=== PATIENT | female | born 1985 | race Caucasian/White ===

== ENCOUNTER 2018-06-09 11:13 | Inpatient (IN) | payer OTHER ==
[~2018-06-09] VITALS: Ht 180.3 cm; Wt 94.1 kg
[2018-06-18] MEDS ORDERED: OXYTOCIN 30U/ 0.9% NaCL 500ML 500 ML IV ONE (06:36)
[2018-06-18] MEDS ORDERED: ONDANSETRON 2MG/ML, 2ML IVPush PRN (07:00)
[2018-06-18] MEDS ORDERED: CALCIUM CARBONATE 500 MG TAB.CHEW PO PRN (07:00)
[2018-06-18] MEDS ORDERED: FENTANYL PF 100 MCG/2ML IV PRN (07:00)
[2018-06-18] MEDS ORDERED: FENTANYL PF 100 MCG/2ML IVPush PRN (07:00)
[2018-06-18] MEDS ORDERED: PLEASE ENTER HEIGHT AND WEIGHT MC SCH ×2 (07:00→09:00)
[2018-06-18 07:19] LABS: BASOPHILS # (AUTO) 0.02 x10^3/uL (0-0.1); BASOPHILS % (AUTO) 0 % (0-1); EOSINOPHILS % (AUTO) 1 % (1-7); LYMPHOCYTES % (AUTO) 20 % (22-44); MD NO; MEAN CORPUSCULAR HEMOGLOBIN 28.7 pg (27.0-34.8); MEAN CORPUSCULAR HGB CONC 33.4 g/dL (32.4-35.8); MEAN CORPUSCULAR VOLUME 85.9 fL (80-100); MEAN PLATELET VOLUME 8.7 fL (7.4-10.4); MONOCYTES # (AUTO) 0.52 x10^3/uL (0.2-0.8); MONOCYTES % (AUTO) 5 % (2-9); NEUTROPHILS # (AUTO) 7.56 x10^3/uL (1.8-6.8); NEUTROPHILS % (AUTO) 73 % (42-75); PLATELET COUNT 307 x10^3/uL (130-400); RED BLOOD COUNT 4.56 x10^6/uL (3.82-5.3); RED CELL DISTRIBUTION WIDTH 15.4 % (9.6-15.2)
[2018-06-18] MEDS: LACTATED RINGERS 1,000 ML IV SCH ×2 (07:45→17:03)
[2018-06-18] MEDS ORDERED: NEWBORN KIT ONE (07:57)
[2018-06-18] MEDS ORDERED: LIDOCAINE 1%, 20ML ONE ×2 (07:57→07:58)
[2018-06-18] MEDS ORDERED: MISOPROSTOL 25 MCG TABLET ONE ×2 (07:57→11:41)
[2018-06-18] MEDS ORDERED: MISOPROSTOL 200 MCG TABLET ONE (07:58)
[2018-06-18] MEDS ORDERED: OXYTOCIN 30U/ 0.9% NaCL 500ML 500 ML ONE (07:58)
[2018-06-18] MEDS: MISOPROSTOL 25 MCG TABLET VG PRN ×2 (08:00→12:00)
[2018-06-18 08:36] VITALS: BP 131/78
[2018-06-18] MEDS ORDERED: FENTANYL/BUPIV./NS/PF 250 ML EPIDCONT SCH ×2 (16:43→16:50)
[2018-06-18] MEDS ORDERED: LACTATED RINGERS 1,000 ML IV SCH (16:50)
[2018-06-18] MEDS ORDERED: NALOXONE 0.4 MG/ML, 1ML IVPush PRN (17:00)
[2018-06-18] MEDS ORDERED: LACTATED RINGERS 1,000 ML IVBOLUS PRN (17:00)
[2018-06-18] MEDS ORDERED: EPHEDRINE 50 MG/ML, 1ML IVPush PRN (17:00)
[2018-06-18] MEDS ORDERED: FENTANYL PF 500 MCG, BUPIVACAINE/PF 0.5%, 30ML 62.5 ML in SODIUM CHLORIDE 0.9% 177.5 ML EPIDCONT SCH (17:30)
[2018-06-18] MEDS ORDERED: BUPIVACAINE 0.25% ONE (17:39)
[2018-06-18] MEDS ORDERED: D5%-LACTATED RINGERS 1,000 ML IV SCH (22:41)
[2018-06-18] MEDS ORDERED: TERBUTALINE 1 MG/ML, 1ML IVPush PRN (23:00)
[2018-06-19] MEDS: OXYTOCIN 30U/ 0.9% NaCL 500ML 500 ML IV SCH ×2 (04:59→14:59)
[2018-06-19] MEDS ORDERED: MISOPROSTOL 200 MCG TABLET PR PRN (05:00)
[2018-06-19] MEDS ORDERED: METOCLOPRAMIDE 5 MG/ML, 2ML IV PRN (05:00)
[2018-06-19] MEDS ORDERED: BISACODYL 10 MG SUPP PR PRN (05:00)
[2018-06-19] MEDS ORDERED: METHYLERGONOVINE 0.2 MG/ML IM PRN (05:00)
[2018-06-19] MEDS ORDERED: OXYcodone IR 5MG TABLET PO PRN (05:00)
[2018-06-19] MEDS ORDERED: OXYcodone/APAP 5/325MG TABLET PO PRN (05:00)
[2018-06-19] MEDS ORDERED: CARBOPROST TROMETHAMINE 250 MCG/ML, 1ML IM PRN (05:00)
[2018-06-19] MEDS ORDERED: ACETAMINOPHEN 325 MG TABLET PO PRN (05:00)
[2018-06-19] MEDS ORDERED: ONDANSETRON 2MG/ML, 2ML IV PRN (05:00)
[2018-06-19] MEDS ORDERED: GLYCERIN ADULT SUPP PR PRN (05:00)
[2018-06-19] MEDS ORDERED: ACETAMINOPHEN 325 MG TABLET ONE (05:14)
[2018-06-19] MEDS ORDERED: OXYTOCIN 30U/ 0.9% NaCL 500ML 500 ML ONE (06:48)
[2018-06-19 07:45] VITALS: BP 103/71
[2018-06-19] MEDS: DOCUSATE 100 MG CAPSULE PO PRN (07:55)
[2018-06-19] MEDS: PRENATAL VIT/IRON/FA 1 EACH TABLET PO SCH (07:55)
[2018-06-19] MEDS: IBUPROFEN 600 MG TABLET PO PRN ×2 (09:45→17:30)
[2018-06-19 12:20] VITALS: BP 114/77
[2018-06-19 14:05] LABS: MEAN CORPUSCULAR HEMOGLOBIN 29.6 pg (27.0-34.8); MEAN CORPUSCULAR HGB CONC 34.3 g/dL (32.4-35.8); MEAN CORPUSCULAR VOLUME 86.3 fL (80-100); MEAN PLATELET VOLUME 8.7 fL (7.4-10.4); PLATELET COUNT 313 x10^3/uL (130-400); RED CELL DISTRIBUTION WIDTH 15.5 % (9.6-15.2)
[2018-06-19 14:33] LABS: MD YES
[2018-06-19 14:35] LABS: <PLATELET ESTIMATE> ADEQUATE; <PLT MORPHOLOGY> NORMAL PLT MORPH; <RBC MORPHOLOGY> NORMAL; BAND#(MANUAL) 2.85 x10^3/uL; BANDS%(MANUAL) 13 % (0-7); LYMPH#(MANUAL) 3.72 x10^3/uL (1-3.4); LYMPHS% (MANUAL) 17 % (22-44); MONOS#(MANUAL) 0.44 x10^3/uL (0.3-2.7); MONOS% (MANUAL) 2 % (2-9); SEG#(MANUAL) 14.89 x10^3/uL (1.8-6.8); SEGS% (MANUAL) 68 % (42-75)
[2018-06-19 16:00] VITALS: BP 105/68
[2018-06-19 20:30] VITALS: BP 109/72
[2018-06-20 00:14] VITALS: BP 100/64
[2018-06-20] MEDS: OXYTOCIN 30U/ 0.9% NaCL 500ML 500 ML IV SCH (00:59)
[2018-06-20 04:30] VITALS: BP 113/75
[2018-06-20 07:10] VITALS: BP 119/78
[2018-06-20] MEDS ORDERED: MEASLES,MUMPS&RUBELLA VACC/PF 0.5 ML SQ-VACC ONE (10:00)
[2018-06-20] MEDS ORDERED: OXYC-302 PO (10:01)
[2018-06-20] MEDS ORDERED: IBUP-1222 PO (10:01)
[2018-06-20] MEDS ORDERED: DOCU-131 PO (10:01)
[2018-06-20] MEDS: IBUPROFEN 600 MG TABLET PO PRN (10:39)
[2018-06-20] MEDS: PRENATAL VIT/IRON/FA 1 EACH TABLET PO SCH (10:39)
[2018-06-20] MEDS: DOCUSATE 100 MG CAPSULE PO PRN (10:39)
== END 2018-06-21 12:49 | disposition home or self-care (01) | DRG 807 ==
LOC: LDIP 06-18 06:31 → 2NW 06-19 07:54
PROVIDERS: ADMIT Obstetrics & Gynecology; ATTEND Obstetrics & Gynecology
PROC: 0HQ9XZZ Repair Perineum Skin, External Approach (ICD-10-PCS; principal; 2018-06-19)
PROC: 10E0XZZ Delivery of Products of Conception, External Approach (ICD-10-PCS; 2018-06-19)
PROC: 10907ZC Drainage of Amniotic Fluid, Therapeutic from Products of Conception, Via Natural or Artificial Opening (ICD-10-PCS; 2018-06-19)
PROC: 3E0R3BZ Introduction of Anesthetic Agent into Spinal Canal, Percutaneous Approach (ICD-10-PCS; 2018-06-19)
PROC: 00HU33Z Insertion of Infusion Device into Spinal Canal, Percutaneous Approach (ICD-10-PCS; 2018-06-19)
PROC: 3E0P7VZ Introduction of Hormone into Female Reproductive, Via Natural or Artificial Opening (ICD-10-PCS; 2018-06-19)
DX: O48.0 Post-term pregnancy (principal); Z37.0 Single live birth; O26.03 Excessive weight gain in pregnancy, third trimester; O69.81X0 Labor and delivery complicated by cord around neck, without compression, not applicable or unspecified; O70.0 First degree perineal laceration during delivery; O77.0 Labor and delivery complicated by meconium in amniotic fluid; Z3A.41 41 weeks gestation of pregnancy
CPT/HCPCS: 36415; 85025; 86850; 86900; G0378; J3010; J3490; J2590; J7050; J7120; J7121

== ENCOUNTER 2020-09-02 07:07 | Inpatient (IN) | payer OTHER ==
[~2020-09-02] VITALS: Ht 172.7 cm; Wt 101.0 kg
[~2020-09-02 07:07] MED LIST: DOCU-131 PO; IBUP-1222 PO; OXYC1TAB14 PO
[2020-09-02] MEDS ORDERED: MISOPROSTOL 25 MCG TABLET VG PRN (07:30)
[2020-09-02] MEDS ORDERED: TERBUTALINE 1 MG/ML, 1ML SQ PRN (07:30)
[2020-09-02] MEDS ORDERED: FENTANYL PF 100 MCG/2ML IV PRN (07:30)
[2020-09-02] MEDS ORDERED: CALCIUM CARBONATE 500 MG TAB.CHEW PO PRN (07:30)
[2020-09-02] MEDS: D5%-LACTATED RINGERS 1,000 ML IV SCH ×2 (07:30→15:30)
[2020-09-02] MEDS ORDERED: SODIUM CHLORIDE FLUSH 10ML SYR IVF PRN (07:30)
[2020-09-02] MEDS ORDERED: TERBUTALINE 1 MG/ML, 1ML IVPush PRN (07:30)
[2020-09-02] MEDS ORDERED: ONDANSETRON 2MG/ML, 2ML IVPush PRN ×2 (07:30→13:00)
[2020-09-02] MEDS ORDERED: OXYTOCIN 30U/ 0.9% NaCL 500ML 500 ML IV PRN (07:30)
[2020-09-02] MEDS ORDERED: FENTANYL PF 100 MCG/2ML IVPush PRN (07:30)
[2020-09-02] MEDS ORDERED: OXYTOCIN 30U/ 0.9% NaCL 500ML 500 ML IV ONE (07:30)
[2020-09-02] MEDS ORDERED: LIDOCAINE 1%, 20ML ONE (07:36)
[2020-09-02] MEDS ORDERED: NEWBORN KIT ONE (07:36)
[2020-09-02] MEDS ORDERED: MISOPROSTOL 200 MCG TABLET ONE (07:37)
[2020-09-02] MEDS: LACTATED RINGERS 1,000 ML IV SCH ×2 (07:50→15:30)
[2020-09-02 07:53] LABS: BASOPHILS % (AUTO) 0 % (0-1); EOSINOPHILS % (AUTO) 1 % (1-7); LYMPHOCYTES % (AUTO) 22 % (22-44); MEAN CORPUSCULAR HEMOGLOBIN 28.2 pg (27.0-34.8); MEAN PLATELET VOLUME 9.6 fL (7.4-10.4); MONOCYTES % (AUTO) 5 % (2-9); NEUTROPHILS % (AUTO) 72 % (42-75); PLATELET COUNT 266 x10^3/uL (130-400); RED BLOOD COUNT 4.59 x10^6/uL (3.82-5.3); RED CELL DISTRIBUTION WIDTH 14.6 % (9.6-15.2)
[2020-09-02 07:57] LABS: MD NO
[2020-09-02 08:00] VITALS: BP 117/82
[2020-09-02 08:05] LABS: ALANINE AMINOTRANSFERASE 16 U/L (12-78); ALBUMIN 2.6 g/dL (3.4-5.0); ANION GAP 9 mmol/L (5-15); CALCIUM 8.6 mg/dL (8.5-10.1); CHLORIDE 109 mmol/L (98-107); CREATININE 0.62 mg/dL (0.55-1.02)
[2020-09-02 08:06] LABS: BILIRUBIN, DIRECT < 0.1 mg/dL (0.1-0.2)
[2020-09-02 08:10] LABS: ALKALINE PHOSPHATASE 159 U/L (45-117); BILIRUBIN,TOTAL 0.3 mg/dL (0.2-1.0); TOTAL PROTEIN 6.3 g/dL (6.4-8.2)
[2020-09-02 08:36] LABS: MICROSCOPIC INDICATED
[2020-09-02] MEDS ORDERED: FENTANYL/BUPIV./NS/PF 250 ML EPIDCONT ONE (12:35)
[2020-09-02] MEDS ORDERED: BUPIVACAINE 0.25% ONE (12:35)
[2020-09-02] MEDS ORDERED: EPHEDRINE 50 MG/ML, 1ML IVPush PRN (13:00)
[2020-09-02] MEDS ORDERED: DIPHENHYDRAMINE 50 MG/ML, 1ML IVPush PRN (13:00)
[2020-09-02] MEDS ORDERED: NALOXONE 0.4 MG/ML, 1ML IVPush PRN (13:00)
[2020-09-02] MEDS ORDERED: LACTATED RINGERS 1,000 ML IV SCH (13:00)
[2020-09-02] MEDS ORDERED: LACTATED RINGERS 1,000 ML IVBOLUS PRN (13:00)
[2020-09-02] MEDS ORDERED: FENTANYL/BUPIV./NS/PF 250 ML EPIDCONT SCH (13:00)
[2020-09-02] MEDS ORDERED: ONDANSETRON 2MG/ML, 2ML IV PRN (16:00)
[2020-09-02] MEDS ORDERED: DOCUSATE 100 MG CAPSULE PO PRN (16:00)
[2020-09-02] MEDS: OXYTOCIN 30U/ 0.9% NaCL 500ML 500 ML IV SCH (16:00)
[2020-09-02] MEDS ORDERED: SIMETHICONE 80 MG CHEW TAB PO PRN (16:00)
[2020-09-02] MEDS ORDERED: MISOPROSTOL 200 MCG TABLET PR PRN (16:00)
[2020-09-02] MEDS ORDERED: HYDROcodone/APAP 5/325 TABLET PO PRN ×2 (16:00)
[2020-09-02] MEDS ORDERED: METHYLERGONOVINE 0.2 MG/ML IM PRN (16:00)
[2020-09-02] MEDS ORDERED: CARBOPROST TROMETHAMINE 250 MCG/ML, 1ML IM PRN (16:00)
[2020-09-02] MEDS ORDERED: ACETAMINOPHEN 325 MG TABLET PO PRN ×2 (16:00)
[2020-09-02 17:45] VITALS: BP 129/77
[2020-09-02] MEDS: IBUPROFEN 600 MG TABLET PO PRN (19:34)
[2020-09-02 21:00] VITALS: BP 117/77
[2020-09-02 23:49] LABS: BASOPHILS % (AUTO) 1 % (0-1); EOSINOPHILS % (AUTO) 0 % (1-7); LYMPHOCYTES % (AUTO) 15 % (22-44); MEAN CORPUSCULAR HEMOGLOBIN 28.4 pg (27.0-34.8); MEAN PLATELET VOLUME 9.8 fL (7.4-10.4); MONOCYTES % (AUTO) 5 % (2-9); NEUTROPHILS % (AUTO) 79 % (42-75); PLATELET COUNT 246 x10^3/uL (130-400); RED BLOOD COUNT 4.17 x10^6/uL (3.82-5.3); RED CELL DISTRIBUTION WIDTH 14.6 % (9.6-15.2)
[2020-09-02 23:59] LABS: MD NO
[2020-09-03 01:50] VITALS: BP 105/70
[2020-09-03] MEDS: IBUPROFEN 600 MG TABLET PO PRN ×2 (01:59→08:30)
[2020-09-03] MEDS: OXYTOCIN 30U/ 0.9% NaCL 500ML 500 ML IV SCH (02:00)
[2020-09-03 07:10] VITALS: BP 119/85
[2020-09-03] MEDS ORDERED: PRENATAL VIT/IRON/FA 1 EACH TABLET PO SCH (09:00)
[2020-09-03 11:50] VITALS: BP 112/71
== END 2020-09-03 16:40 | disposition home or self-care (01) | DRG 807 ==
LOC: LDIP 07:07 → 2NW 17:00
PROVIDERS: ADMIT Obstetrics & Gynecology; ATTEND Obstetrics & Gynecology
PROC: 10D07Z6 Extraction of Products of Conception, Vacuum, Via Natural or Artificial Opening (ICD-10-PCS; principal; 2020-09-02)
PROC: 0HQ9XZZ Repair Perineum Skin, External Approach (ICD-10-PCS; 2020-09-02)
PROC: 3E0P7VZ Introduction of Hormone into Female Reproductive, Via Natural or Artificial Opening (ICD-10-PCS; 2020-09-02)
DX: O76 Abnormality in fetal heart rate and rhythm complicating labor and delivery (principal); Z37.0 Single live birth; Z3A.40 40 weeks gestation of pregnancy; O70.0 First degree perineal laceration during delivery; O77.0 Labor and delivery complicated by meconium in amniotic fluid; Z20.822 Contact with and (suspected) exposure to COVID-19
CPT/HCPCS: 36415; 80053; 81001; 82248; 82570; 84156; 84550; 85025; 86592; 86850; 86900; 87635; G0378; J3010; J7120